=== PATIENT | male | born 1985 | race Caucasian/White ===

== ENCOUNTER 2016-10-19 21:44 | Emergency (ER) | payer OTHER ==
--- NOTE | 2016-10-20 19:08 | ER ---
ADMIT: 10/19/2016 RM/LOC: ER [facility] MR#: [id number] [facility] [address] [place], [place] [id number] [address] [place] [address] Emergency Room Report SEX: M AGE: 31 : 1985 DATE: 10/19/2016 HISTORY OF PRESENT ILLNESS: The patient is a 31-year-old male, presents to the emergency room with chest wall pain. He had been in the emergency room on 10/13/2016, but he returned to work and apparently because of his job at [employer], he reinjured himself. He went to the nurse at work and they told him that in 15 days, he could see the doctor who works for the [employer] company, but he could not wait. He needs to get to work and he wants to make sure that he is properly cleared for. REVIEW OF SYSTEMS: Negative. PAST MEDICAL HISTORY: Unremarkable except for recent overuse injury on his left chest, which he was treated in the emergency room for. PHYSICAL EXAMINATION: VITAL SIGNS: Within normal limits. GENERAL: He is pretty anxious because he wants to get back to work, but does not know what to do regarding this injury. On examination, he is extremely tender on left breast about an inch or two from nipple. Upon deep palpation, there is a bump in that area, most likely inflammation. LUNGS: His breath sounds are normal. No rhonchi or decreased air movement. There is some splinting when he laughs or when he coughs. He was given Toradol IM and I went ahead and wrote for Ultram prescription. CLINICAL IMPRESSION: Costochondritis and chest wall pain, overuse injury. PLAN: I gave him a note of modified work for about a week or until he is cleared by Dr. Lewis. He is the doctor who was given to him the previous time he was in the ER. He is going to call and make appointment to get a followup. RED Montero / Yrn Torrez MD / jennifer JOB #: [id number] CC: Yrn Torrez MD, Attending Physician Orly Lewis MD, Family Physician
== END 2016-10-20 00:40 | disposition home or self-care (01) ==
LOC: ER 21:44
DX: M94.0 Chondrocostal junction syndrome [Tietze] (principal); R07.89 Other chest pain; Z79.899 Other long term (current) drug therapy